=== PATIENT | female | born 1950 ===

== ENCOUNTER 2022-04-10 11:47 | Inpatient (IN) ==
[2022-04-10] MEDS ORDERED: Iopamidol - 370 500 ML MLS IVP ONE ×2 (11:59→13:07)
[2022-04-10] MEDS ORDERED: EPINEPHrine 1 MG/ML VIAL IM ONE (12:12)
[2022-04-10] MEDS ORDERED: Ondansetron 4 MG/2 ML VIAL ONE (12:12)
[2022-04-10] MEDS ORDERED: methylPREDNISolone 125 MG/2 ML VIAL IVP ONE (12:12)
[2022-04-10] MEDS ORDERED: methylPREDNISolone 125 MG/2 ML VIAL ONE (12:14)
[2022-04-10] MEDS ORDERED: *HR* EPINEPHrine 0.3 MG/0.3 ML (PEN) ONE (12:14)
[2022-04-10] MEDS: Ondansetron 4 MG/2 ML VIAL IVP ONE ×2 (12:16→12:17)
[2022-04-10] MEDS: Norepinephrine 4 MG/254 ML IV.SOLN IVC SCH (12:16)
[2022-04-10] MEDS ORDERED: 0.9 % Sodium Chloride 1,000 ML ONE (12:21)
[2022-04-10 12:32] LABS: Mean Platelet Volume 10.1 fL (9.4-12.4)
[2022-04-10 12:34] LABS: Basophils # 0.2 K/mcL (0.0-0.2); Basophils % 0.7 %; Eosinophils # 0.2 K/mcL (0.0-0.6); Eosinophils % 0.8 %; Hematocrit 47.5 % (35.3-44.9); Hemoglobin 15.7 g/dL (11.5-15.4); Immature Granulocytes % 5.2 % (0-4); Lymphocytes # 4.6 K/mcL (0.6-4.6); Lymphocytes % 17.8 %; Mean Corpuscular HGB Conc 33.1 g/dL (31.6-35.5); Mean Corpuscular Hemoglobin 30.3 pg (28.0-33.3); Mean Corpuscular Volume 91.7 fL (83.0-100.0); Monocytes # 0.7 K/mcL (0.0-1.3); Monocytes % 2.6 %; Neutrophils # 18.8 K/mcL (1.6-8.9); Platelet Count 324 K/mcL (140-400); Red Blood Count 5.18 M/mcL (3.82-4.97); Segmented Neutrophils % 72.9 %; White Blood Count 25.8 K/mcL (4.3-11.1)
[2022-04-10 12:41] LABS: Prothrombin Time 10.8 Seconds (9.4-12.1)
[2022-04-10 12:43] LABS: Activated Partial Thrombo Time 44.6 Seconds (26.0-36.0)
[2022-04-10] MEDS ORDERED: cefTRIAXone 1,000 MG in 0.9 % Sodium Chloride 10 ML IVP ONE (12:44)
[2022-04-10 13:01] LABS: Alanine Aminotransferase 23 Units/L (7-52); Albumin/Globulin Ratio 1.5 (1.1-2.2); Alkaline Phosphatase 93 Units/L (34-104); Aspartate Amino Transferase 22 Units/L (13-39); BUN/Creatinine Ratio 19 (6-26); Bilirubin,Total 0.5 mg/dL (0.3-1.0); Blood Urea Nitrogen 20 mg/dL (8-23); Calcium 9.6 mg/dL (8.6-10.3); Carbon Dioxide 19 mEq/L (23-29); Chloride 103 mEq/L (98-107); Globulin 2.7 g/dL (2.4-3.5); Glucose 138 mg/dL (70-105); Lipase 84 Units/L (11-82); Osmolality,Calculated 291 (280-300); Potassium 3.2 mEq/L (3.5-5.1); Sodium 138 mEq/L (136-145); Total Protein 6.7 g/dL (6.4-8.9); Troponin I < 0.03 ng/mL (< 0.04); eGFR For African Americans > 60 (> 60); eGFR For Non-African Americans 53 (> 60)
[2022-04-10 13:13] LABS: Platelet Estimate Normal (Normal)
[2022-04-10 13:14] LABS: Anisocytosis 1+ (Not Present)
[2022-04-10] MEDS ORDERED: Ondansetron 4 MG/2 ML VIAL IVP PRN (13:29)
[2022-04-10 15:51] LABS: Bilirubin,Urine Negative (Negative); Blood,Urine Negative (Negative); Clarity,Urine Clear (Clear); Color,Urine Dark-Yellow (Yellow); Glucose,Urine (UA) >=1000 mg/dL (Normal); Hyaline Casts,Urine Few per lpf (None Seen); Ketones,Urine Negative (Negative); Leukocyte Esterase,Urine Negative (Negative); Mucus,Urine Few per lpf (None-Few); Nitrite,Urine Negative (Negative); PH,Urine 6.5 pH Units (5.0-8.0); Protein,Urine 50 mg/dL (Neg-Trace); RBC,Urine 0-3 per hpf (0-3); Specific Gravity,Urine > 1.030 (1.010-1.025); Squamous Epithelial Cell,Urine Few per hpf (None-Few); Urobilinogen,Urine Normal (Normal); WBC,Urine 0-3 per hpf (0-3)
[2022-04-10 16:38] LABS: Influenza A PCR Negative (Negative); Influenza B PCR Negative (Negative); Resp. Syncytial Virus PCR Negative (Negative)
[2022-04-10] MEDS ORDERED: Naloxone 0.4 MG/ML INJ IVP PRN (16:49)
[2022-04-10] MEDS ORDERED: Dextrose Gel 15 GM/37.5 ML TUBE PO PRN ×2 (17:19)
[2022-04-10] MEDS ORDERED: *HR* Dextrose 50 % in Water (Syg) 50 ML SYRINGE IVP PRN (17:19)
[2022-04-10] MEDS ORDERED: D5% in Water 1,000 ML IVC PRN (17:19)
[2022-04-10 17:21] LABS: SARS-CoV-2 by PCR (In House) Negative (Negative)
[2022-04-10 17:50] LABS: VBG HCO3 18 mEq/L (21-27); VBG PCO2 37 mmHg (41-51); VBG PH 7.29 pH Units (7.32-7.42); VBG PO2 65 mmHg (25-50)
[2022-04-10] MEDS: Insulin LISPRO 300 UNITS/3 ML VIAL SUBQ SCH (18:26)
[2022-04-10] MEDS ORDERED: Calcium Gluconate 1gm/50mL 1 GM/50 ML BAG IVPB PRN (18:30)
[2022-04-10] MEDS ORDERED: Potassium Phosphate 44 MEQ in 0.9 % Sodium Chloride 250 ML IVPB PRN (18:30)
[2022-04-10 18:46] LABS: Beta-Hydroxybutyric Acid 0.75 mmol/L (0.02-0.27)
[2022-04-10] MEDS: Famotidine 20 MG/2 ML VIAL IVP SCH (18:49)
[2022-04-10 19:08] LABS: Procalcitonin 3.06 ng/mL (0.00-0.15)
[2022-04-10 21:29] LABS: Hematocrit 46.2 % (35.3-44.9); Hemoglobin 15.7 g/dL (11.5-15.4); Mean Corpuscular Hemoglobin 30.5 pg (28.0-33.3); Mean Corpuscular Volume 89.9 fL (83.0-100.0); Mean Platelet Volume 10.1 fL (9.4-12.4); Platelet Count 207 K/mcL (140-400); Red Blood Count 5.14 M/mcL (3.82-4.97); White Blood Count 13.7 K/mcL (4.3-11.1)
[2022-04-10 21:43] LABS: BUN/Creatinine Ratio 24 (6-26); Blood Urea Nitrogen 23 mg/dL (8-23); Calcium 8.3 mg/dL (8.6-10.3); Carbon Dioxide 17 mEq/L (23-29); Chloride 108 mEq/L (98-107); Glucose 221 mg/dL (70-105); Osmolality,Calculated 290 (280-300); Potassium 4.5 mEq/L (3.5-5.1); Sodium 135 mEq/L (136-145); eGFR For African Americans > 60 (> 60); eGFR For Non-African Americans 59 (> 60)
[2022-04-10 22:06] LABS: Lymphocytes # 1.1 K/mcL (0.6-4.6); Monocytes # 0.3 K/mcL (0.0-1.3); Neutrophils # 12.3 K/mcL (1.6-8.9)
[2022-04-10 22:07] LABS: Reactive Lymphocytes Present (Not Present); Smudge Cells Present (Not Present)
[2022-04-11] MEDS: Norepinephrine 4 MG/254 ML IV.SOLN IVC SCH (01:33)
[2022-04-11] MEDS: MethylPREDNISolone 40 MG/ML VIAL IVP SCH ×2 (01:33→08:23)
[2022-04-11] MEDS: Famotidine 20 MG/2 ML VIAL IVP SCH (05:03)
[2022-04-11 07:14] LABS: Magnesium 1.9 mg/dL (1.6-2.6); Phosphorous 4.7 mg/dL (2.7-4.5)
[2022-04-11] MEDS ORDERED: Acetaminophen 325 MG TABLET PO PRN (08:29)
[2022-04-11] MEDS: Insulin LISPRO 300 UNITS/3 ML VIAL SUBQ SCH ×2 (08:33→12:03)
[2022-04-11] MEDS ORDERED: Metoprolol 100 MG TABLET PO SCH (09:00)
[2022-04-11] MEDS ORDERED: Aspirin Enteric Coated 325 MG Tablet PO SCH (09:00)
[2022-04-11] MEDS ORDERED: Cyprohepatdine 4 MG TABLET PO SCH (09:00)
[2022-04-11] MEDS ORDERED: levETIRAcetam 250 MG TABLET PO SCH (09:00)
[2022-04-11] MEDS ORDERED: cefTRIAXone 2,000 MG in 0.9 % Sodium Chloride 20 ML IVP SCH (09:00)
[2022-04-11] MEDS ORDERED: Loratadine 10 MG TABLET PO SCH (09:00)
[2022-04-11 09:45] LABS: Basophils % 0.1 %; Eosinophils # 0.1 K/mcL (0.0-0.6); Eosinophils % 0.3 %; Hematocrit 40.3 % (35.3-44.9); Immature Granulocytes % 0.5 % (0-4); Lymphocytes # 0.8 K/mcL (0.6-4.6); Lymphocytes % 5.3 %; Mean Corpuscular Hemoglobin 30.5 pg (28.0-33.3); Mean Corpuscular Volume 92.4 fL (83.0-100.0); Mean Platelet Volume 10.5 fL (9.4-12.4); Monocytes % 6.5 %; Neutrophils # 12.8 K/mcL (1.6-8.9); Platelet Count 200 K/mcL (140-400); Red Blood Count 4.36 M/mcL (3.82-4.97); Red Cell Distribution Width 13.1 % (11.5-14.5); Segmented Neutrophils % 87.3 %; White Blood Count 14.7 K/mcL (4.3-11.1)
[2022-04-11 09:47] LABS: Hemoglobin 13.3 g/dL (11.5-15.4)
[2022-04-11 09:59] LABS: BUN/Creatinine Ratio 25 (6-26); Blood Urea Nitrogen 26 mg/dL (8-23); Calcium 8.3 mg/dL (8.6-10.3); Carbon Dioxide 21 mEq/L (23-29); Chloride 103 mEq/L (98-107); Glucose 246 mg/dL (70-105); Osmolality,Calculated 287 (280-300); Potassium 4.4 mEq/L (3.5-5.1); Sodium 132 mEq/L (136-145); eGFR For African Americans > 60 (> 60); eGFR For Non-African Americans 54 (> 60)
[2022-04-11 11:51] VITALS: BP 105/48; O2SAT 94
[2022-04-11 11:53] VITALS: PULSE 74
[2022-04-11] MEDS ORDERED: predniSONE 20 MG TABLET PO ONE (12:02)
[2022-04-11] MEDS ORDERED: Magnesium Sulfate 1 GM/102 ML PIGGYBACK IVPB ONE (12:04)
[2022-04-11] MEDS ORDERED: Calcium Gluconate 1gm/50mL 1 GM/50 ML BAG IVPB ONE (12:05)
[2022-04-11 12:07] VITALS: TEMP 98.3
[2022-04-11] MEDS ORDERED: Gabapentin 300 MG CAPSULE PO SCH (21:00)
== END 2022-04-11 14:20 | disposition home or self-care (01) | DRG 916 ==
LOC: EMEROOARM 11:47 → SUATTDRO 16:58 → ICNU 16:58
PROVIDERS: ADMIT Emergency Medicine; ATTEND Internal Medicine